=== PATIENT | male | born 1945 | race Caucasian/White ===

== ENCOUNTER 2016-08-30 09:57 | Outpatient (CLI) | payer MEDICARE, OTHER | END 2016-08-30 09:58 | disposition home or self-care (01) | DX: Z00.00 Encounter for general adult medical examination without abnormal findings (principal); E11.9 Type 2 diabetes mellitus without complications; I10 Essential (primary) hypertension; E78.5 Hyperlipidemia, unspecified ==

== ENCOUNTER 2017-03-07 08:03 | Outpatient (CLI) | payer MEDICARE, OTHER ==
[2017-03-07 08:47] LABS: ALBUMIN/GLOBULIN RATIO 1.4 (1.0-2.2); BILIRUBIN,TOTAL 0.6 mg/dL (0.2-1.0); BUN - BLOOD UREA NITROGEN 27 mg/dL (6-20); CALCIUM 9.3 mg/dL (8.5-10.3); CARBON DIOXIDE - CO2 26 mmol/L (21-32); CHLORIDE 106 mmol/L (101-111); CHOL/HDL RATIO 4.3 (<5.0); CHOLESTEROL 170 mg/dL; CREATININE 1.1 mg/dL (0.6-1.2); GFR - MDRD 66 (>89); GLUCOSE 123 mg/dL (70-100); HDL CHOLESTEROL 40 mg/dL; LDL/HDL RATIO 2.9 (<3.6); POTASSIUM 4.2 mmol/L (3.5-5.0); SODIUM 138 mmol/L (135-145); TOTAL PROTEIN 7.3 g/dL (6.7-8.2); TRIGLYCERIDES 66 mg/dL; VLDL CHOLESTEROL 13 mg/dL
== END 2017-03-07 08:04 | disposition home or self-care (01) ==
LOC: LAB 08:03
PROVIDERS: ATTEND Family Medicine
DX: M10.9 Gout, unspecified (principal); E11.9 Type 2 diabetes mellitus without complications; M53.83 Other specified dorsopathies, cervicothoracic region; I10 Essential (primary) hypertension; E78.5 Hyperlipidemia, unspecified
CPT/HCPCS: 36415; 80053; 80061

== ENCOUNTER 2017-03-12 17:04 | Outpatient (CLI) | payer MEDICARE, OTHER ==
[2017-03-12 19:33] LABS: HEMOGLOBIN A1C 0.67 g/dL
== END 2017-03-12 17:05 | disposition home or self-care (01) ==
LOC: LAB 17:04
PROVIDERS: ATTEND Family Medicine
DX: E11.9 Type 2 diabetes mellitus without complications (principal); Z12.5 Encounter for screening for malignant neoplasm of prostate; M10.9 Gout, unspecified
CPT/HCPCS: 36415; 83036; 84550; G0103; 84153

== ENCOUNTER 2017-06-04 11:08 | Outpatient (CLI) | payer MEDICARE, OTHER ==
[2017-06-04 19:08] LABS: HEMOGLOBIN A1C 0.69 g/dL
== END 2017-06-04 11:09 | disposition home or self-care (01) ==
LOC: LAB.WCP 11:08
PROVIDERS: ATTEND Family Medicine
DX: E11.9 Type 2 diabetes mellitus without complications (principal)
CPT/HCPCS: 36415; 83036

== ENCOUNTER 2018-02-17 08:10 | Outpatient (CLI) | payer MEDICARE, OTHER ==
[2018-02-17 08:56] LABS: ALBUMIN 4.4 g/dL (3.2-5.5); ALBUMIN/GLOBULIN RATIO 1.4 (1.0-2.2); ALKALINE PHOSPHATASE 45 IU/L (42-121); ALT ALANINE AMINOTRANSFERASE 22 IU/L (10-60); AST ASPARTATE AMINOTRANSFERASE 21 IU/L (10-42); BILIRUBIN,TOTAL 0.9 mg/dL (0.2-1.0); BUN - BLOOD UREA NITROGEN 26 mg/dL (6-20); CALCIUM 9.5 mg/dL (8.5-10.3); CARBON DIOXIDE - CO2 26 mmol/L (21-32); CHLORIDE 103 mmol/L (101-111); CHOL/HDL RATIO 4.8 (<5.0); CHOLESTEROL 197 mg/dL; CREATININE 1.2 mg/dL (0.6-1.2); GFR - MDRD 59 (>89); GLUCOSE 141 mg/dL (70-100); HDL CHOLESTEROL 41 mg/dL; LDL CHOLESTEROL,CALCULATED 137 mg/dL; LDL/HDL RATIO 3.3 (<3.6); SODIUM 138 mmol/L (135-145); TOTAL PROTEIN 7.5 g/dL (6.7-8.2); VLDL CHOLESTEROL 19 mg/dL
[2018-02-17 09:03] LABS: HB2 TOTAL 16.7 g/dL; HEMOGLOBIN A1C 0.72 g/dL; HEMOGLOBIN A1C % 6.1 % (4.6-6.2)
== END 2018-02-17 08:11 | disposition home or self-care (01) ==
LOC: LAB 08:10
PROVIDERS: ATTEND Family Medicine
DX: E11.9 Type 2 diabetes mellitus without complications (principal); E78.5 Hyperlipidemia, unspecified
CPT/HCPCS: 36415; 80053; 80061; 82043; 83036; 83721

== ENCOUNTER 2018-03-31 08:07 | Outpatient (CLI) | payer MEDICARE, OTHER ==
[2018-03-31 08:47] LABS: BASOPHILS % (AUTO) 0.6 %; EOSINOPHILS # (AUTO) 0.1 10^3/uL (0.0-0.7); EOSINOPHILS % (AUTO) 1.4 %; HGB - HEMOGLOBIN 15.5 g/dL (14.0-18.0); LYMPHOCYTES # (AUTO) 1.5 10^3/uL (1.5-3.5); LYMPHOCYTES % (AUTO) 23.2 %; MEAN CORPUSCULAR HEMOGLOBIN 31.7 pg (27.0-31.0); MEAN CORPUSCULAR HGB CONC 34.3 g/dL (32.0-36.0); MEAN CORPUSCULAR VOLUME 92.7 fL (80.0-94.0); MONOCYTES # (AUTO) 0.5 10^3/uL (0.0-1.0); MONOCYTES % (AUTO) 8.6 %; NEUTROPHILS # (AUTO) 4.2 10^3/uL (1.5-6.6); NEUTROPHILS % (AUTO) 66.2 %; PLT - PLATELET COUNT 131 10^3/uL (130-450); RED BLOOD COUNT 4.88 10^6/uL (4.70-6.10); RED CELL DISTRIBUTION WIDTH 13.9 % (12.0-15.0); WHITE BLOOD COUNT 6.3 x10^3/uL (4.8-10.8)
== END 2018-03-31 08:08 | disposition home or self-care (01) ==
LOC: LAB 08:07
PROVIDERS: ATTEND Internal Medicine Gastroenterology
DX: E11.9 Type 2 diabetes mellitus without complications (principal); I10 Essential (primary) hypertension; E78.5 Hyperlipidemia, unspecified; Z12.5 Encounter for screening for malignant neoplasm of prostate; R53.83 Other fatigue; Z80.0 Family history of malignant neoplasm of digestive organs
CPT/HCPCS: 36415; 84443; 85025; G0103; 84153

== ENCOUNTER 2018-05-29 07:07 | Day surgery (SDC) | payer MEDICARE, OTHER ==
[2018-05-29] MEDS ORDERED: LACTATED RINGERS 1,000 ML IV ONE ×2 (07:28→08:45)
[2018-05-29] MEDS ORDERED: fentaNYL 250 MCG/5 ML VIAL IVP ONE (08:23)
[2018-05-29] MEDS ORDERED: MIDAZOLAM 2 MG/2 ML VIAL IVP ONE (08:23)
[2018-05-29 09:25] VITALS: BP 116/54
== END 2018-05-29 07:08 | disposition home or self-care (01) ==
LOC: SDS 07:07
PROVIDERS: ATTEND Internal Medicine Gastroenterology
PROC: 0DJD8ZZ Inspection of Lower Intestinal Tract, Via Natural or Artificial Opening Endoscopic (ICD-10-PCS; principal; 2018-05-29 08:15)
DX: Z12.11 Encounter for screening for malignant neoplasm of colon (principal); Z80.0 Family history of malignant neoplasm of digestive organs; I10 Essential (primary) hypertension; E11.9 Type 2 diabetes mellitus without complications; E66.9 Obesity, unspecified; N40.0 Benign prostatic hyperplasia without lower urinary tract symptoms; E78.00 Pure hypercholesterolemia, unspecified
CPT/HCPCS: G0105; J3010; J7120

== ENCOUNTER 2019-01-15 07:41 | Outpatient (CLI) | payer MEDICARE, OTHER ==
[2019-01-15 08:15] LABS: BASOPHILS % (AUTO) 0.6 %; EOSINOPHILS # (AUTO) 0.1 10^3/uL (0.0-0.7); EOSINOPHILS % (AUTO) 1.9 %; HGB - HEMOGLOBIN 15.4 g/dL (14.0-18.0); LYMPHOCYTES # (AUTO) 1.6 10^3/uL (1.5-3.5); LYMPHOCYTES % (AUTO) 30.3 %; MEAN CORPUSCULAR HEMOGLOBIN 31.6 pg (27.0-31.0); MEAN CORPUSCULAR HGB CONC 34.5 g/dL (32.0-36.0); MEAN CORPUSCULAR VOLUME 91.6 fL (80.0-94.0); MEAN PLATELET VOLUME 10.7 fL (7.4-11.4); MONOCYTES # (AUTO) 0.5 10^3/uL (0.0-1.0); NEUTROPHILS % (AUTO) 57.8 %; PLT - PLATELET COUNT 143 10^3/uL (130-450); RED BLOOD COUNT 4.87 10^6/uL (4.70-6.10); RED CELL DISTRIBUTION WIDTH 12.5 % (12.0-15.0); WHITE BLOOD COUNT 5.2 x10^3/uL (4.8-10.8)
[2019-01-15 08:22] LABS: CREATININE,URINE 157.3 mg/dL; MICROALBUM/CREATININE RATIO,UR 15.9 ug/mg (<30.0); MICROALBUMIN,URINE 2.5 mg/dL (0-300.0)
[2019-01-15 08:57] LABS: ALBUMIN 4.1 g/dL (3.2-5.5); ALBUMIN/GLOBULIN RATIO 1.3 (1.0-2.2); ALKALINE PHOSPHATASE 39 IU/L (42-121); ALT ALANINE AMINOTRANSFERASE 28 IU/L (10-60); AST ASPARTATE AMINOTRANSFERASE 23 IU/L (10-42); BILIRUBIN,TOTAL 0.8 mg/dL (0.2-1.0); BUN - BLOOD UREA NITROGEN 23 mg/dL (6-20); CALCIUM 9.5 mg/dL (8.5-10.3); CARBON DIOXIDE - CO2 24 mmol/L (21-32); CHLORIDE 105 mmol/L (101-111); CHOL/HDL RATIO 4.7 (<5.0); CHOLESTEROL 184 mg/dL; CREATININE 1.3 mg/dL (0.6-1.2); GFR - MDRD 54 (>89); GLUCOSE 142 mg/dL (70-100); HDL CHOLESTEROL 39 mg/dL; LDL CHOLESTEROL,CALCULATED 119 mg/dL; LDL/HDL RATIO 3.1 (<3.6); SODIUM 140 mmol/L (135-145); TOTAL PROTEIN 7.3 g/dL (6.7-8.2); VLDL CHOLESTEROL 26 mg/dL
[2019-01-15 09:06] LABS: HEMOGLOBIN A1C 0.79 g/dL; HEMOGLOBIN A1C % 6.7 % (4.6-6.2)
== END 2019-01-15 07:42 | disposition home or self-care (01) ==
LOC: LAB 07:41
PROVIDERS: ATTEND Family Medicine
DX: I10 Essential (primary) hypertension (principal); E11.9 Type 2 diabetes mellitus without complications; E78.5 Hyperlipidemia, unspecified
CPT/HCPCS: 36415; 80053; 80061; 82043; 82570; 83036; 83721; 85025

== ENCOUNTER 2019-07-10 07:48 | Outpatient (CLI) | payer MEDICARE, OTHER ==
[2019-07-10 08:17] LABS: CALCIUM 9.1 mg/dL (8.5-10.3); CREATININE 1.3 mg/dL (0.6-1.2); URIC ACID 5.5 mg/dL (2.6-7.2)
[2019-07-10 08:32] LABS: HB2 TOTAL 16.2 g/dL; HEMOGLOBIN A1C 0.78 g/dL; HEMOGLOBIN A1C % 6.6 % (4.6-6.2)
[2019-07-10 08:35] LABS: CREATININE,URINE 189.9 mg/dL; MICROALBUM/CREATININE RATIO,UR 25.8 ug/mg (<30.0); MICROALBUMIN,URINE 4.9 mg/dL (0-300.0)
== END 2019-07-10 07:49 | disposition home or self-care (01) ==
LOC: LAB 07:48
PROVIDERS: ATTEND Family Medicine
DX: E11.9 Type 2 diabetes mellitus without complications (principal); M10.9 Gout, unspecified; I10 Essential (primary) hypertension; E78.5 Hyperlipidemia, unspecified
CPT/HCPCS: 36415; 80048; 82043; 82570; 83036; 84550

== ENCOUNTER 2019-11-19 09:34 | Outpatient (CLI) | payer MEDICARE, OTHER ==
[2019-11-19 10:02] LABS: CALCIUM 9.3 mg/dL (8.5-10.3); CREATININE 1.1 mg/dL (0.6-1.2); URIC ACID 4.7 mg/dL (2.6-7.2)
[2019-11-19 10:08] LABS: HB2 TOTAL 17.1 g/dL; HEMOGLOBIN A1C 0.73 g/dL; HEMOGLOBIN A1C % 6.1 % (4.6-6.2)
[2019-11-19 10:29] LABS: CREATININE,URINE 181.4 mg/dL; MICROALBUM/CREATININE RATIO,UR 49.6 ug/mg (<30.0)
== END 2019-11-19 09:35 | disposition home or self-care (01) ==
LOC: LAB 09:34
PROVIDERS: ATTEND Family Medicine
DX: E11.9 Type 2 diabetes mellitus without complications (principal); I10 Essential (primary) hypertension; E78.5 Hyperlipidemia, unspecified; M10.9 Gout, unspecified
CPT/HCPCS: 36415; 80048; 82043; 82570; 83036; 84550

== ENCOUNTER 2020-04-20 09:20 | Outpatient (CLI) | payer MEDICARE, OTHER ==
[2020-04-20 09:38] LABS: BASOPHILS % (AUTO) 0.4 %; EOSINOPHILS % (AUTO) 0.5 %; LYMPHOCYTES # (AUTO) 1.5 10^3/uL (1.5-3.5); MEAN CORPUSCULAR HEMOGLOBIN 31.3 pg (27.0-31.0); MEAN CORPUSCULAR HGB CONC 33.8 g/dL (32.0-36.0); MEAN CORPUSCULAR VOLUME 92.6 fL (80.0-94.0); MEAN PLATELET VOLUME 10.3 fL (7.4-11.4); MONOCYTES # (AUTO) 0.5 10^3/uL (0.0-1.0); MONOCYTES % (AUTO) 8.8 %; NEUTROPHILS # (AUTO) 3.6 10^3/uL (1.5-6.6); NEUTROPHILS % (AUTO) 62.9 %; PLT - PLATELET COUNT 153 10^3/uL (130-450); RED BLOOD COUNT 5.12 10^6/uL (4.70-6.10); RED CELL DISTRIBUTION WIDTH 13.2 % (12.0-15.0); WHITE BLOOD COUNT 5.7 x10^3/uL (4.8-10.8)
[2020-04-20 09:54] LABS: ALBUMIN 4.5 g/dL (3.2-5.5); ALBUMIN/GLOBULIN RATIO 1.5 (1.0-2.2); ALKALINE PHOSPHATASE 41 IU/L (42-121); ALT ALANINE AMINOTRANSFERASE 23 IU/L (10-60); AST ASPARTATE AMINOTRANSFERASE 19 IU/L (10-42); BILIRUBIN,TOTAL 0.8 mg/dL (0.2-1.0); BUN - BLOOD UREA NITROGEN 30 mg/dL (6-20); CALCIUM 9.7 mg/dL (8.5-10.3); CARBON DIOXIDE - CO2 24 mmol/L (21-32); CHLORIDE 100 mmol/L (101-111); CHOL/HDL RATIO 4.8 (<5.0); CHOLESTEROL 197 mg/dL; CREATININE 1.2 mg/dL (0.6-1.2); GLUCOSE 134 mg/dL (70-100); HDL CHOLESTEROL 41 mg/dL; LDL CHOLESTEROL,CALCULATED 138 mg/dL; LDL/HDL RATIO 3.4 (<3.6); SODIUM 137 mmol/L (135-145); TOTAL PROTEIN 7.6 g/dL (6.7-8.2); URIC ACID 5.3 mg/dL (2.6-7.2); VLDL CHOLESTEROL 18 mg/dL
[2020-04-20 12:29] LABS: HEMOGLOBIN A1c% 5.7 % (4.27-6.07)
== END 2020-04-20 09:21 | disposition home or self-care (01) ==
LOC: LAB 09:20
PROVIDERS: ATTEND Family Medicine
DX: E11.9 Type 2 diabetes mellitus without complications (principal); Z12.5 Encounter for screening for malignant neoplasm of prostate; E78.5 Hyperlipidemia, unspecified; M10.9 Gout, unspecified
CPT/HCPCS: 36415; 80053; 80061; 82043; 83036; 84443; 84550; 85025; G0103; 83721; 84153

== ENCOUNTER 2020-05-04 13:18 | Outpatient (CLI) | payer MEDICARE, OTHER ==
--- NOTE | 2020-05-04 15:20 | XRAY Report ---
PROCEDURE: Cervical Spine 2 View INDICATIONS: TREMOR, LEFT HAND TECHNIQUE: 3 view(s) of the cervical spine were acquired. COMPARISON: None. FINDINGS: Bones: No fractures or dislocations to the T1 level. The lateral masses of C1 appear intact on the odontoid view. No suspicious bony lesions. Multilevel cervical spondylosis. Findings are most pronou nced at C5-6 and C6-7. Soft tissues: No prevertebral soft tissue swelling. IMPRESSION: Cervical spine without acute fracture or malalignment. Multilevel cervical spondylosis m ost pronounced at C5-6 and C6-7. Reviewed by: Yo Gomez MD on 05/04/2020 2:18 PM [place] Approved by: Yo Gomez MD on 05/04/2020 2:18 PM [facility] Station ID: [id number]
--- NOTE | 2020-05-04 16:28 | XRAY Report ---
PROCEDURE: Lumbar Spine 2 View INDICATIONS: TINGLING, DDD LUMBAR TECHNIQUE: 3 views of the lumbar spine were acquired. COMPARISON: None. FINDINGS: Bones: 5 [id number] vertebrae are present. There is normal bony alignment. No vertebral body compression fractures. No suspicious bony lesions. Mild lower lumbar spondylosis and facet arthropa thy. This is most pronounced at L5-S1. Soft tissues: Overlying bowel gas pattern is normal. No suspicious soft tissue calcifications. IMPRESSION: Lumbar spine without acute radiographic abnormalities. Mild lower lumbar spondylosis. Reviewed by: Yo Gomez MD on 05/04/2020 3:26 PM [facility] Approved by: Yo Gomez MD on 05/04/2020 3:26 PM [facility] Station ID: [id number]
== END 2020-05-04 13:19 | disposition home or self-care (01) ==
LOC: DI.S 13:18
PROVIDERS: ATTEND Internal Medicine
DX: M51.36 Other intervertebral disc degeneration, lumbar region (principal); M47.816 Spondylosis without myelopathy or radiculopathy, lumbar region; M47.812 Spondylosis without myelopathy or radiculopathy, cervical region; R20.2 Paresthesia of skin; R25.1 Tremor, unspecified
CPT/HCPCS: 72040; 72100

== ENCOUNTER 2020-10-19 07:31 | Outpatient (CLI) | payer MEDICARE, OTHER ==
[2020-10-19 08:02] LABS: BASOPHILS % (AUTO) 0.4 %; EOSINOPHILS # (AUTO) 0.1 10^3/uL (0.0-0.7); EOSINOPHILS % (AUTO) 1.2 %; HCT - HEMATOCRIT 45.2 % (42.0-52.0); HGB - HEMOGLOBIN 15.3 g/dL (14.0-18.0); LYMPHOCYTES # (AUTO) 1.5 10^3/uL (1.5-3.5); LYMPHOCYTES % (AUTO) 29.5 %; MEAN CORPUSCULAR HGB CONC 33.8 g/dL (32.0-36.0); MEAN CORPUSCULAR VOLUME 91.7 fL (80.0-94.0); MEAN PLATELET VOLUME 10.6 fL (7.4-11.4); MONOCYTES # (AUTO) 0.5 10^3/uL (0.0-1.0); MONOCYTES % (AUTO) 9.1 %; NEUTROPHILS % (AUTO) 59.4 %; PLT - PLATELET COUNT 144 10^3/uL (130-450); RED BLOOD COUNT 4.93 10^6/uL (4.70-6.10); WHITE BLOOD COUNT 5.1 x10^3/uL (4.8-10.8)
[2020-10-19 08:18] LABS: ALBUMIN 4.3 g/dL (3.2-5.5); ALBUMIN/GLOBULIN RATIO 1.4 (1.0-2.2); BILIRUBIN,TOTAL 0.9 mg/dL (0.2-1.0); CALCIUM 9.4 mg/dL (8.5-10.3); CREATININE 1.1 mg/dL (0.6-1.2); POTASSIUM 3.9 mmol/L (3.5-5.0); TOTAL PROTEIN 7.4 g/dL (6.7-8.2)
[2020-10-19 08:35] LABS: THYROID STIMULATING HORMONE 2.88 uIU/mL (0.34-5.60)
[2020-10-19 08:38] LABS: FREE T4 (FREE THYROXINE) 0.98 ng/dL (0.58-1.64)
[2020-10-19 08:47] LABS: FOLATE 8.44 ng/mL (5.90 - >24.8)
[2020-10-19 12:31] LABS: ESTIMATED AVERAGE GLUCOSE 123 mg/dL (70-100); HEMOGLOBIN A1c% 5.9 % (4.27-6.07)
[2020-10-21 15:46] LABS: ALBUMIN 4.2 g/dL (3.8-4.8); ALPHA 1 GLOBULIN 0.2 g/dL (0.2-0.3); ALPHA 2 GLOBULIN 0.7 g/dL (0.5-0.9); BETA 1 GLOBULIN 0.4 g/dL (0.4-0.6); BETA 2 GLOBULIN 0.3 g/dL (0.2-0.5); GAMMA GLOBULIN 0.9 g/dL (0.8-1.7)
== END 2020-10-19 07:32 | disposition home or self-care (01) ==
LOC: LAB 07:31
PROVIDERS: ATTEND Psychiatry & Neurology Neurology
DX: G62.9 Polyneuropathy, unspecified (principal); I10 Essential (primary) hypertension; E11.9 Type 2 diabetes mellitus without complications
CPT/HCPCS: 36415; 80053; 82607; 82746; 83036; 83921; 84155; 84165; 84439; 84443; 85025

== ENCOUNTER 2021-01-04 10:04 | Outpatient (CLI) | payer MEDICARE, OTHER ==
--- NOTE | 2021-01-04 10:52 | MRI Report ---
PROCEDURE: Lumbar Spine W/O INDICATIONS: LUMBAR RADICULITIS TECHNIQUE: Noncontrast sagittal T1 spin echo and T2 fast echo, sagittal STIR, axial T1 and T2 fast spin echo thr ough the lumbar spine. In cases with scoliosis, additional coronal T2 fast spin echo may be performe d. COMPARISON: Plain films of the lumbar spine dated 05/04/2020 FINDINGS: Image quality: Excellent. Alignment and Curvature: 5 lumbar type vertebral bodies are present by plain film. Minimal grade 1 re trolisthesis of L3 on L4 is present. Bone Marrow: Marrow is of normal overall signal. No acute vertebral body compression fractures. Mi nimal reactive signal within the end plates adjacent to the L1-L2, L2-L3, L3-L4, and L4-L5 interverte bral discs. Spinal Cord: Conus medullaris terminates at the mid L1 level. Visualized cord demonstrates normal s ignal and size. Paraspinous Soft Tissues: No paravertebral masses. T12-L1: Mild facet and ligament flavum hypertrophy. No significant canal, nor foraminal stenosis. L1-L2: Mild facet and ligament flavum hypertrophy. No significant canal, nor foraminal stenosis. L2-L3: Mild facet and ligament flavum hypertrophy. No significant canal, nor foraminal stenosis. L3-L4: Mild disc desiccation. Mild facet and ligament flavum hypertrophy. Mild canal stenosis. Mild bilateral foraminal stenosis. L4-L5: Mild disc desiccation and diffuse disc bulge. Moderate facet and ligament flavum hypertrophy . Mild epidural lipomatosis. Mild canal stenosis. Moderate left and severe right subarticular foramin al stenosis. Right L4 nerve root compression. L5-S1: Moderate disc desiccation. Mild disc height loss and diffuse disc bulge. Mild bilateral face t hypertrophy. Mild canal stenosis. Mild bilateral foraminal stenosis. IMPRESSION: 1. Multilevel degenerative disc and facet disease, in addition to epidural lipomatosis and ligamentum flavum hypertrophy. 2. Mild multilevel canal stenoses. 3. Multilevel foraminal stenoses, worst on the right at L4-L5 where there is associated intraforamina l nerve root compression. Recommend correlation with clinical symptoms to ascertain relevance of this finding. Reviewed by: Feng Bledsoe MD on 01/04/2021 10:51 AM PDT Approved by: Feng Bledsoe MD on 01/04/2021 10:51 AM PDT Station ID: [id number]
== END 2021-01-04 10:05 | disposition home or self-care (01) ==
LOC: DI 10:04
PROVIDERS: ATTEND Internal Medicine
DX: M51.16 Intervertebral disc disorders with radiculopathy, lumbar region (principal); M48.061 Spinal stenosis, lumbar region without neurogenic claudication; M51.37 Other intervertebral disc degeneration, lumbosacral region; M48.07 Spinal stenosis, lumbosacral region; M47.817 Spondylosis without myelopathy or radiculopathy, lumbosacral region; M47.26 Other spondylosis with radiculopathy, lumbar region

== ENCOUNTER 2021-02-01 13:44 | Outpatient (CLI) | payer MEDICARE, OTHER ==
--- NOTE | 2021-02-01 17:08 | Ultrasound Report ---
PROCEDURE: Retroperitoneal INDICATIONS: BENIGN PROSTATIC HYPERPLASIA TECHNIQUE: Real-time scanning was performed of the kidneys and bladder, with image documentation. COMPARISON: None FINDINGS: Kidneys: Kidneys are normal in size. Right kidney measures 10.1 cm long; left kidney measures 11.2 cm long. Right renal cortical thickness is 1.8 cm; left renal cortical thickness is 1.7 cm. Renal c ortical echotexture is normal. No hydronephrosis. Possible 5 mm nonobstructing right renal calcifica tion. No suspicious solid mass lesions. Bladder: Pre-void bladder volume is 73 mL. Post-void residual is 26 mL. Pre-void images demonstrat e no intraluminal masses or stones. On pre-void images, bilateral ureteral jets are noted with color Doppler interrogation. (Of note, ureteral jets may not be detectable in up to 25% of cases due to i nsufficient differences in specific gravity between ureteral and bladder urine). Prostate is promine nt. Miscellaneous: No free pelvic fluid. IMPRESSION: Normal appearance the kidneys bilaterally. Possible 5 mmnonobstructing right renal calcification. 26 cc postvoid residual. Reviewed by: PAULA Smith on 02/01/2021 5:07 PM PDT Approved by: Ivan Carrington MD on 02/01/2021 5:07 PM PDT Station ID: [id number]
== END 2021-02-01 13:45 | disposition home or self-care (01) ==
LOC: DI 13:44
PROVIDERS: ATTEND Physician Assistant Medical
DX: N40.0 Benign prostatic hyperplasia without lower urinary tract symptoms (principal); R93.421 Abnormal radiologic findings on diagnostic imaging of right kidney
CPT/HCPCS: 36415; 84153; 87086

== ENCOUNTER 2021-05-02 08:17 | Outpatient (CLI) | payer MEDICARE, OTHER ==
[2021-05-02 08:56] LABS: ALBUMIN 4.1 g/dL (3.2-5.5); ALBUMIN/GLOBULIN RATIO 1.2 (1.0-2.2); BILIRUBIN,TOTAL 0.7 mg/dL (0.2-1.0); CALCIUM 9.4 mg/dL (8.5-10.3); CREATININE 1.1 mg/dL (0.6-1.2); POTASSIUM 4.3 mmol/L (3.5-5.0); TOTAL PROTEIN 7.4 g/dL (6.7-8.2)
[2021-05-02 13:41] LABS: ESTIMATED AVERAGE GLUCOSE 134 mg/dL (70-100); HEMOGLOBIN A1c% 6.3 % (4.27-6.07)
== END 2021-05-02 08:18 | disposition home or self-care (01) ==
LOC: LAB 08:17
PROVIDERS: ATTEND Internal Medicine
DX: I10 Essential (primary) hypertension (principal); E11.9 Type 2 diabetes mellitus without complications
CPT/HCPCS: 36415; 80053; 83036

== ENCOUNTER 2021-07-31 08:48 | Outpatient (CLI) | payer MEDICARE, OTHER | END 2021-07-31 08:49 | disposition home or self-care (01) | LOC: LAB 08:48 | PROVIDERS: ATTEND Internal Medicine | DX: R97.20 Elevated prostate specific antigen [PSA] (principal) | CPT/HCPCS: 36415; 84153 ==

== ENCOUNTER 2021-11-10 12:07 | Outpatient (CLI) | payer MEDICARE, OTHER ==
[2021-11-10 14:38] LABS: HCT - HEMATOCRIT 44.7 % (42.0-52.0); HGB - HEMOGLOBIN 15.3 g/dL (14.0-18.0); MEAN CORPUSCULAR HEMOGLOBIN 31.1 pg (27.0-31.0); MEAN CORPUSCULAR HGB CONC 34.2 g/dL (32.0-36.0); MEAN CORPUSCULAR VOLUME 90.9 fL (80.0-94.0); MEAN PLATELET VOLUME 10.7 fL (7.4-11.4); RED BLOOD COUNT 4.92 10^6/uL (4.70-6.10); RED CELL DISTRIBUTION WIDTH 12.7 % (12.0-15.0); WHITE BLOOD COUNT 7.6 x10^3/uL (4.8-10.8)
[2021-11-10 15:18] LABS: ALBUMIN/GLOBULIN RATIO 1.1 (1.0-2.2); BILIRUBIN,TOTAL 0.6 mg/dL (0.2-1.0); CALCIUM 9.4 mg/dL (8.5-10.3); CREATININE 1.1 mg/dL (0.6-1.2); POTASSIUM 4.2 mmol/L (3.5-5.0); TOTAL PROTEIN 7.5 g/dL (6.7-8.2)
[2021-11-10 20:25] LABS: ESTIMATED AVERAGE GLUCOSE 134 mg/dL (70-100); HEMOGLOBIN A1c% 6.3 % (4.27-6.07)
== END 2021-11-10 12:08 | disposition home or self-care (01) ==
LOC: LAB.S 12:07
PROVIDERS: ATTEND Orthopaedic Surgery
DX: Z01.812 Encounter for preprocedural laboratory examination (principal); E11.8 Type 2 diabetes mellitus with unspecified complications
CPT/HCPCS: 36415; 80053; 83036; 85027

== ENCOUNTER 2022-07-19 10:45 | Outpatient (CLI) | payer MEDICARE, OTHER ==
[2022-07-19 15:19] LABS: BILIRUBIN,URINE NEGATIVE (NEGATIVE); GLUCOSE, URINE (UA) NEGATIVE (NEGATIVE); KETONES,URINE (UA) NEGATIVE (NEGATIVE); LEUKOCYTE ESTERASE, URINE MODERATE (NEGATIVE); NITRITE,URINE NEGATIVE (NEGATIVE); OCCULT BLOOD,URINE SMALL (NEGATIVE); PH,URINE 5.5 PH (5.0-7.5); PROTEIN,URINE TRACE mg/dL (NEGATIVE); UROBILINOGEN,URINE 0.2 (NORMAL) E.U./dL (NORMAL)
[2022-07-19 15:32] LABS: CLARITY,URINE CLOUDY (CLEAR)
[2022-07-19 15:53] LABS: BACTERIA,URINE Moderate /HPF (None Seen); SQUAMOUS EPITHELIAL CELL,UR RARE Squamous (<= Few); WBC,URINE >25 /HPF (0-3)
== END 2022-07-19 23:59 | disposition home or self-care (01) ==
LOC: LAB.S 10:45
PROVIDERS: ATTEND Emergency Medicine
DX: R35.0 Frequency of micturition (principal)
CPT/HCPCS: 81001; 87077; 87086; 87181

== ENCOUNTER 2022-09-03 07:12 | Outpatient (CLI) | payer MEDICARE, OTHER ==
[2022-09-03 07:57] LABS: CHOL/HDL RATIO 5.5 (<5.0); CHOLESTEROL 198 mg/dL; HDL CHOLESTEROL 36 mg/dL; LDL CHOLESTEROL,CALCULATED 142 mg/dL; LDL/HDL RATIO 3.9 (<3.6); TRIGLYCERIDES 101 mg/dL; VLDL CHOLESTEROL 20 mg/dL
[2022-09-03 08:41] LABS: BILIRUBIN,URINE NEGATIVE (NEGATIVE); GLUCOSE, URINE (UA) NEGATIVE (NEGATIVE); KETONES,URINE (UA) NEGATIVE (NEGATIVE); LEUKOCYTE ESTERASE, URINE NEGATIVE (NEGATIVE); NITRITE,URINE NEGATIVE (NEGATIVE); OCCULT BLOOD,URINE NEGATIVE (NEGATIVE); PROTEIN,URINE NEGATIVE (NEGATIVE); UROBILINOGEN,URINE 0.2 (NORMAL) E.U./dL (NORMAL)
[2022-09-03 09:05] LABS: CLARITY,URINE CLEAR (CLEAR)
[2022-09-03 09:43] LABS: ESTIMATED AVERAGE GLUCOSE 143 mg/dL (70-100); HEMOGLOBIN A1c% 6.6 % (4.27-6.07)
[2022-09-03 10:21] LABS: BACTERIA,URINE Few /HPF (None Seen); RBC,URINE None Seen /HPF (0-5); SQUAMOUS EPITHELIAL CELL,UR NONE SEEN (<= Few); WBC,URINE 0-3 /HPF (0-3)
[2022-09-03 10:22] LABS: CASTS, URINE 0-2 Hyaline Casts /LPF
== END 2022-09-03 07:13 | disposition home or self-care (01) ==
LOC: LAB 07:12
PROVIDERS: ATTEND Nurse Practitioner
DX: E78.5 Hyperlipidemia, unspecified (principal); E11.9 Type 2 diabetes mellitus without complications; R35.0 Frequency of micturition
CPT/HCPCS: 36415; 80061; 81001; 83036; 83721; 87086

== ENCOUNTER 2022-09-04 12:16 | Outpatient (CLI) | payer MEDICARE, OTHER ==
[2022-09-04 12:50] LABS: CALCIUM 9.5 mg/dL (8.5-10.3); CREATININE 1.3 mg/dL (0.6-1.2); POTASSIUM 4.2 mmol/L (3.5-5.0)
== END 2022-09-04 12:17 | disposition home or self-care (01) ==
LOC: LAB 12:16
PROVIDERS: ATTEND Anesthesiology
DX: Z01.812 Encounter for preprocedural laboratory examination (principal)
CPT/HCPCS: 36415; 80048

== ENCOUNTER 2022-09-05 11:12 | Outpatient (CLI) | payer MEDICARE, OTHER | END 2022-09-05 11:13 | disposition home or self-care (01) | LOC: RT 11:12 | PROVIDERS: ATTEND Anesthesiology | DX: Z13.6 Encounter for screening for cardiovascular disorders (principal) | CPT/HCPCS: 93005 ==

== ENCOUNTER 2023-01-03 16:46 | Outpatient (CLI) | payer MEDICARE, OTHER ==
--- NOTE | 2023-01-04 10:53 | Ultrasound Report ---
PROCEDURE: Soft tissue ultrasound INDICATIONS: MASS OF UPPER BACK TECHNIQUE: Soft tissue ultrasound was performed at the area of interest in the upper right back. COMPARISON: None. FINDINGS: Degenerative interest, there is a focus of encapsulated fat measuring 3.4 x 1.2 x 3.3 cm. Otherwise, muscles and fascial planes are maintained. No abnormal vascularity. IMPRESSION: Right upper back subcutaneous lipoma at the area of interest Reviewed by: Raymond Wood MD on 01/04/2023 9:52 AM [facility] Approved by: Raymond Wood MD on 01/04/2023 9:52 AM [facility] Station ID: [id number]
== END 2023-01-03 16:47 | disposition home or self-care (01) ==
LOC: DI 16:46
PROVIDERS: ATTEND Physician Assistant
DX: D17.1 Benign lipomatous neoplasm of skin and subcutaneous tissue of trunk (principal)

== ENCOUNTER 2023-04-22 10:21 | Outpatient (CLI) | payer MEDICARE, OTHER ==
[2023-04-22 15:05] LABS: BASOPHILS % (AUTO) 0.4 %; EOSINOPHILS # (AUTO) 0.1 10^3/uL (0.0-0.7); EOSINOPHILS % (AUTO) 1.7 %; HCT - HEMATOCRIT 45.2 % (42.0-52.0); LYMPHOCYTES # (AUTO) 1.5 10^3/uL (1.5-3.5); LYMPHOCYTES % (AUTO) 21.6 %; MEAN CORPUSCULAR HEMOGLOBIN 31.1 pg (27.0-31.0); MEAN CORPUSCULAR HGB CONC 33.2 g/dL (32.0-36.0); MEAN CORPUSCULAR VOLUME 93.8 fL (80.0-94.0); MEAN PLATELET VOLUME 11.5 fL (7.4-11.4); MONOCYTES # (AUTO) 0.5 10^3/uL (0.0-1.0); MONOCYTES % (AUTO) 7.8 %; NEUTROPHILS # (AUTO) 4.7 10^3/uL (1.5-6.6); NEUTROPHILS % (AUTO) 68.2 %; PLT - PLATELET COUNT 144 10^3/uL (130-450); RED BLOOD COUNT 4.82 10^6/uL (4.70-6.10); RED CELL DISTRIBUTION WIDTH 13.1 % (12.0-15.0); WHITE BLOOD COUNT 6.9 x10^3/uL (4.8-10.8)
[2023-04-22 15:57] LABS: CREATININE,URINE 164.5 mg/dL; MICROALBUM/CREATININE RATIO,UR 108.8 ug/mg (<30.0); MICROALBUMIN,URINE 17.9 mg/dL
[2023-04-22 21:11] LABS: ESTIMATED AVERAGE GLUCOSE 134 mg/dL (70-100); HEMOGLOBIN A1c% 6.3 % (4.27-6.07)
== END 2023-04-22 10:22 | disposition home or self-care (01) ==
LOC: LAB.S 10:21
PROVIDERS: ATTEND Nurse Practitioner
DX: I10 Essential (primary) hypertension (principal); E11.9 Type 2 diabetes mellitus without complications; E78.5 Hyperlipidemia, unspecified
CPT/HCPCS: 36415; 80053; 80061; 82043; 82570; 83036; 83721; 85025

== ENCOUNTER 2023-04-25 10:16 | Outpatient (CLI) | payer MEDICARE, OTHER ==
[2023-04-25 15:46] LABS: ALBUMIN 4.5 g/dL (3.2-5.5); ALBUMIN/GLOBULIN RATIO 1.6 (1.0-2.2); ALKALINE PHOSPHATASE 42 IU/L (42-121); ALT ALANINE AMINOTRANSFERASE 32 IU/L (10-60); AST ASPARTATE AMINOTRANSFERASE 25 IU/L (10-42); BILIRUBIN,TOTAL 0.8 mg/dL (0.2-1.0); BUN - BLOOD UREA NITROGEN 23 mg/dL (6-20); CARBON DIOXIDE - CO2 27 mmol/L (21-32); CHLORIDE 104 mmol/L (101-111); CHOL/HDL RATIO 2.5 (<5.0); CHOLESTEROL 108 mg/dL; CREATININE 1.2 mg/dL (0.6-1.3); GFR - MDRD 59 (>89); GLUCOSE 143 mg/dL (74-104); HDL CHOLESTEROL 44 mg/dL; LDL CHOLESTEROL,CALCULATED 50 mg/dL; LDL/HDL RATIO 1.1 (<3.6); POTASSIUM 4.5 mmol/L (3.5-4.5); SODIUM 138 mmol/L (135-145); TOTAL PROTEIN 7.3 g/dL (6.4-8.9); TRIGLYCERIDES 70 mg/dL (48-352); VLDL CHOLESTEROL 14 mg/dL
== END 2023-04-25 10:17 | disposition home or self-care (01) ==
LOC: LAB.S 10:16
PROVIDERS: ATTEND Nurse Practitioner
DX: I10 Essential (primary) hypertension (principal); E11.9 Type 2 diabetes mellitus without complications; E78.5 Hyperlipidemia, unspecified
CPT/HCPCS: 36415; 80053; 80061; 83721

== ENCOUNTER 2023-08-16 10:53 | Outpatient (CLI) | payer MEDICARE, OTHER ==
[2023-08-16 11:10] LABS: BASOPHILS % (AUTO) 0.3 %; EOSINOPHILS % (AUTO) 0.3 %; HCT - HEMATOCRIT 46.1 % (42.0-52.0); HGB - HEMOGLOBIN 15.3 g/dL (14.0-18.0); LYMPHOCYTES # (AUTO) 1.1 10^3/uL (1.5-3.5); LYMPHOCYTES % (AUTO) 18.1 %; MEAN CORPUSCULAR HEMOGLOBIN 31.2 pg (27.0-31.0); MEAN CORPUSCULAR HGB CONC 33.2 g/dL (32.0-36.0); MEAN CORPUSCULAR VOLUME 94.1 fL (80.0-94.0); MEAN PLATELET VOLUME 10.7 fL (7.4-11.4); MONOCYTES % (AUTO) 16.6 %; NEUTROPHILS # (AUTO) 3.7 10^3/uL (1.5-6.6); NEUTROPHILS % (AUTO) 64.5 %; PLT - PLATELET COUNT 125 10^3/uL (130-450); RED CELL DISTRIBUTION WIDTH 13.2 % (12.0-15.0); WHITE BLOOD COUNT 5.8 x10^3/uL (4.8-10.8)
[2023-08-16 11:20] LABS: CALCIUM 9.6 mg/dL (8.5-10.3); CREATININE 1.3 mg/dL (0.6-1.3); POTASSIUM 4.2 mmol/L (3.5-4.5)
== END 2023-08-16 10:54 | disposition home or self-care (01) ==
LOC: LAB 10:53
PROVIDERS: ATTEND Emergency Medicine
DX: U07.1 COVID-19 (principal)
CPT/HCPCS: 36415; 80048; 85025

== ENCOUNTER 2023-09-10 08:00 | Outpatient (CLI) | payer MEDICARE, OTHER ==
[2023-09-10 10:04] LABS: ESTIMATED AVERAGE GLUCOSE 137 mg/dL (70-100); HEMOGLOBIN A1c% 6.4 % (4.27-6.07)
== END 2023-09-10 08:01 | disposition home or self-care (01) ==
LOC: LAB 08:00
PROVIDERS: ATTEND Nurse Practitioner
DX: E11.9 Type 2 diabetes mellitus without complications (principal)
CPT/HCPCS: 36415; 83036

== ENCOUNTER 2023-12-10 07:11 | Outpatient (CLI) | payer MEDICARE, OTHER ==
[2023-12-10 15:41] LABS: CHOL/HDL RATIO 2.7 (<5.0); CHOLESTEROL 124 mg/dL; HDL CHOLESTEROL 46 mg/dL; LDL CHOLESTEROL,CALCULATED 61 mg/dL; LDL/HDL RATIO 1.3 (<3.6); TRIGLYCERIDES 87 mg/dL (48-352); VLDL CHOLESTEROL 17 mg/dL
[2023-12-10 20:50] LABS: ESTIMATED AVERAGE GLUCOSE 120 mg/dL (70-100); HEMOGLOBIN A1c% 5.8 % (4.27-6.07)
== END 2023-12-10 07:12 | disposition home or self-care (01) ==
LOC: LAB.S 07:11
PROVIDERS: ATTEND Nurse Practitioner
DX: E78.5 Hyperlipidemia, unspecified (principal); E11.9 Type 2 diabetes mellitus without complications
CPT/HCPCS: 36415; 80061; 83036; 83721